=== PATIENT | male | born 1990 | race Caucasian/White ===

== ENCOUNTER 2019-04-03 04:31 | Emergency (ER) | payer OTHER, MEDICAID ==
[~2019-04-03] VITALS: Ht 180.3 cm; Wt 83.9 kg
[2019-04-03] MEDS ORDERED: SODIUM CHLORIDE 0.9% 1,000 ML IV ONE (08:08)
[2019-04-03] MEDS ORDERED: cefTRIAXone 1GM/50ML D5W 50 ML IV ONE (08:15)
[2019-04-03 08:30] VITALS: BP 116/68
[2019-04-03] MEDS ORDERED: KETOROLAC TROMETH 15 mg/ml 1ML VL IV ONE (08:45)
== END 2019-04-03 10:06 | disposition home or self-care (01) ==
LOC: ER 04:31 → EDBD 04:31 → ER 10:06
DX: M79.604 Pain in right leg (principal); S10.93XA Contusion of unspecified part of neck, initial encounter; S40.011A Contusion of right shoulder, initial encounter; V46.5XXA Car driver injured in collision with other nonmotor vehicle in traffic accident, initial encounter; Y93.89 Activity, other specified; Y99.8 Other external cause status; Y92.488 Other paved roadways as the place of occurrence of the external cause
CPT/HCPCS: 70450; 71250; 72125; 73000; 73020; 74176; 96365; 96375; 99284; J0696; J1885; J7030